=== PATIENT | female | born 1965 | race African-American/Black ===

== ENCOUNTER → 2018-10-31 | Outpatient (CLI) | payer OTHER ==
[~2018-10-31] VITALS: Ht 152.4 cm; Wt 61.2 kg
[~2018-10-31] MED LIST: BACLOFEN 10MG T10 M1 PO; CALCIUM PO; CYCLOBENZAPRINE10 MG PO; NEURONTIN 300300 M1 PO; PRAVACHOL40 MG PO; TIZANIDINE HCL4 M1 PO; VESICARE10 M1 PO; VITAMIN D 5050000 I1 PO
--- NOTE | ~2018-10-31 | HPC ---
[facility] [address] [place] [address] PAIN MANAGEMENT CONSULTATION Name: MEDARDO RODRIGUES Room #: REG [facility]..#: [id number] Admission: 10/31/18 ������������������ Attend Phys: Ryan Matta MD Discharge: ������������������ Date of : 67 Report #: [id number] THIS REPORT FOR: //name// CC: Babar Alfonso MD FAM unknown Ryan Matta DATE OF SERVICE: 10/31/2018 CHIEF COMPLAINT: Left occipital pain. 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 This occurred at [facility] in 2004. Following that surgery, she never walked again and has been in a wheelchair. She has some sensation, but is really unable to use her lower extremities to any degree. She transfers independently from her chair to a sitting chair and also to bed. She transfers to a car seat and can drive a car using modification. She works as a customer support associate for [employer] and is with two children. She is leading a full and active life. She describes her current pain as a headache, burning, throbbing pain that is in the left side of her head and neck. Nothing seems to make it worse. The pain is persistent and gnawing, tender and stabbing. She scores it as a 3/10. She has used ibuprofen and heat provide some relief, but has taken nothing stronger. She has had no treatments or injections. MEDICATIONS: Gabapentin 300 mg 2 tablets b.i.d., baclofen 10 mg daily, pravastatin 40 mg daily and VESIcare 10 mg daily. ALLERGIES: None. PAST MEDICAL HISTORY: Significant for anemia. Her only other marked medical history is ependymoma resection resulting in her paralysis in 2004. SOCIAL HISTORY: As mentioned above. She denies use of tobacco or alcohol. REVIEW OF SYSTEMS: Completed by the patient is positive for the occipital headache on the left, the need for glasses, chronic sinus problems. She has constipation, which she monitors carefully with her bowel program. She has some incontinence and does straight cath. PHYSICAL EXAMINATION: GENERAL: She is a delightful, outgoing 53-year-old. VITAL SIGNS: Blood pressure is 150/84, heart rate is 75 and respirations 16. She is 5 feet tall, 135 pounds. Pain intensity is 3/10. [facility] [address] [place] [address] PAIN MANAGEMENT CONSULTATION Name: MEDARDO RODRIGUES Room #: REG [facility] .[facility].#: [id number] Admission: 10/31/18 ������������������ Attend Phys: Ryan Matta MD Discharge: ������������������ Date of : 67 Report #: [id number] HEENT: Pupils are equal, round and react to light. EOMs are intact. Mucous membranes are moist. NECK: Supple. She has good range of motion, increasing her pain in the left occiput with rotational movements particularly to the left. Lateral tilt, forward flexion and extension of the neck reproduce pain less so than the rotational movements at the top of the neck. She has local tenderness below the occiput. EXTREMITIES: Arms are strong. Biceps, triceps, brachioradialis and deltoid all in good strength. Content Assistant strength is excellent. Sensation is intact. Deep tendon reflexes are 2+ at the biceps, triceps and brachioradialis. Lower extremities are paralyzed below the level of T9. IMPRESSION: Cervicalgia with occipital radiation. She may have occipital neuralgia or this could be some referred facet arthropathy probably from C2-C3 if that is true. RECOMMENDATIONS: 1. We can perform some plain film x-rays to look for facet changes on a diagnostic mode. 2. Consider occipital injection for symptomatic relief. 3. Consider medication management. We discussed all these options at some length. She elected not to proceed with injection therapy today, which is fine. I did give her a trial of muscle relaxant just in case there is a myofascial component to this. She can use it at bedtime. She was given tizanidine 4 mg, 15 tablets and cyclobenzaprine 10 mg, 15 tablets both of which are trial prescriptions. She will call back to the clinic if she would like an additional prescription for use at bedtime. She can follow up with Dr. Alfonso on these medicines as well. ��������������������������������������������� ���������������������������������������� By: ��������������������������������������������� [id number] Ryan Matta MD /nt
[2018-10-31 11:22] VITALS: BP 150/94
--- NOTE | 2018-10-31 11:45 | NUR ---
Pain Clinic Assessment: 1. History of Osteoarthritis: Not Applicable History of Rheumatoid Arthritis: Not Applicable 2. Height: 5 ft. 0 in. 152.4 cm. Weight: 135.0 lb. oz. 61.236 kg. Patient's BMI: 26.4 3. Vital Signs: BP: 150/94 Pulse: 75 Resp: 16 Temp: 02 Sat: 100 ECG Mon: 4. Pain Intensity: 3 5. Fall Risk: Dizziness: N Needs help standing or walking: Y Fallen in the last 3 months: N Fall risk comments: 6. Patient on Blood Thinner: None 7. History of Hypertension: N 8. Opioid Therapy greater than 6 weeks: N Opiate Contract Signed: 9. Risk Assessment Tool Provided: 10. Functional Assessment Tool: 11. Recreational Drug Use: Never Drug Type: Tobacco Use: Never Smoker Tobacco Type: Amount or Packs/day: How Many Years: Alcohol Use: No Frequency: Quant:
== END ==
LOC: PAIN 10-17 13:23
DX: M54.2 Cervicalgia (principal); Z79.899 Other long term (current) drug therapy